=== PATIENT | male | born 2000 | race Caucasian/White ===

== ENCOUNTER 2023-07-10 08:20 | Emergency (ER) | payer BC, SELFPAY ==
[2023-07-10 08:31] VITALS: BP 138/78; PULSE 79; RESP 18; TEMP 36.2; O2SAT 99; BMI 24.4
--- NOTE | 2023-07-10 08:41 | CRLHL7_ITS ---
For Patients: As a result of the Cures Act, medical imaging exams and procedure reports are released immediately into your electronic medical record. You may view this report before your referring provider. If you have questions, please contact your health care provider. Indication: Crush injury 3rd digit right finger. Technique: Right 3rd finger 3 views. Comparison: None. Findings: Bones: Alignment is normal. No fractures or bone lesions. Joint spaces: Unremarkable. Soft tissues: Irregularity over the right 3rd finger nailbed. No imbedded foreign body. Impression: : Right 3rd finger nailbed irregularity. No fracture or foreign body. Dictated by Cece Malhotra MD @ 07/10/2023 9:16:52 AM (Electronically Signed)
--- NOTE | 2023-07-10 08:43 | ED_ITS ---
HPI - General Adult General Chief complaint: Extremity Pain/Injury, Upper Stated complaint: bleeding under fingernail Time Seen by Provider: 07/10/23 08:23 History of Present Illness HPI narrative: The patient is a 22-year-old male slammed his long finger nail in a door last night. Has some blood under the nail. He studied the Internet and thought this should get checked. He has otherwise been healthy. He reports he is up-to-date on tetanus. No other health problem. He has a college student. From the [facility]. Related Data Previous Rx's Medication Instructions Recorded cephalexin 500 mg capsule 500 mg PO QID #20 caps 07/10/23 Allergies Allergy/AdvReac Type Severity Reaction Status Date / Time No Known Drug Allergies Allergy Verified 07/10/23 08:33 Review of Systems Narrative: Negative for infections or other finger injuries in the past. PFSH [facility] Social History Smoking Status: Never smoker Do you use any of these nicotine containing products: None Exam Narrative: Exam Narrative: Objective: Vital signs unremarkable Long finger of the right hand shows a subungual hematoma about residential up the nail from proximal to distal. No marked redness. Range of motion appears normal. Minimal soft tissue swelling of the distal phalanx Const: Vital Signs, click to edit/add: Vital Signs - 24 hr 07/10/23 08:31 Temperature 97.2 F L Pulse Rate [Right Pulse Oximeter] 79 Respiratory Rate 18 Blood Pressure [Ri ght Upper Arm] 138/78 Pulse Oximetry 99 Oxygen Delivery Me thod Room Air Course Vital Signs Vital signs: Initial Vital Signs Temperature 97.2 F L 07/10/23 08:31 Temperature Source Temporal Artery Scan 07/10/23 08:31 Pulse Rate 79 07/10/23 08:31 Respiratory Rate 18 07/10/23 08:31 Blood Pressure 138/78 07/10/23 08:31 Blood Pressure Mean 98 07/10/23 08:31 Blood Pressure Position Sitting 07/10/23 08:31 Pulse Oximetry 99 07/10/23 08:31 Oxygen Delivery Method Room Air 07/10/23 08:31 Vital Signs Temperature 97.2 F L 07/10/23 08:31 Pulse Rate 79 07/10/23 08:31 Respiratory Rate 18 07/10/23 08:31 Blood Pressure 138/78 07/10/23 08:31 Pulse Oximetry 99 07/10/23 08:31 Oxygen Delivery Method Room Air 07/10/23 08:31 Temperature 97.2 F L 07/10/23 08:31 Pulse Rate 79 07/10/23 08:31 Respiratory Rate 18 07/10/23 08:31 Blood Pressure 138/78 07/10/23 08:31 Pulse Oximetry 99 07/10/23 08:31 Oxygen Delivery Method Room Air 07/10/23 08:31 Medical Decision Making MDM Narrative Medical decision making narrative: 22-year-old male signed his finger in a door. Will get an x-ray. Because of the subdural hematoma a procedure was performed a Betadine swab was used to clean the nail and hot tip cautery is used to open the nail bed good expression of blood was noted. X-ray of the finger appears negative. Patient will cover the wound and soak it starting tonight couple times a day in soapy water. Will put him on Keflex 500 q.i.d. x5 days because of the injury. Return if problems or concerns. Discharge Plan Discharge Clinical Impression: Contusion of finger, Subungual hematoma Patient Disposition: Home, Self-Care Condition: Improved Additional Instructions: Keep covered for 4-6 hours, then may start soaking the finger and cover with a bandage as needed. Keflex 500 q.i.d. x5 days. Watch for redness or infection. Return if problems or concerns. Activity Level: Light activity Discharge Diet: Regular Prescriptions: New cephalexin 500 mg capsule 500 mg PO QID Qty: 20 0RF Stand Alone Forms: [facility] Info Instructions
== END 2023-07-10 09:18 | disposition home or self-care (01) ==
LOC: ED 09:00
PROVIDERS: Emergency Provider Family Medicine
DX: S60.131A Contusion of right middle finger with damage to nail, initial encounter (principal); W23.0XXA Caught, crushed, jammed, or pinched between moving objects, initial encounter
CPT/HCPCS: 73140; 99283; 99284

== ENCOUNTER 2023-12-23 21:16 | Emergency (ER) | payer OTHER, SELFPAY ==
[2023-12-23 21:43] VITALS: BP 145/79; PULSE 85; RESP 16; TEMP 36.7; O2SAT 99; BMI 23.1
--- NOTE | 2023-12-23 22:49 | ED_ITS ---
HPI - General Adult General Time Seen by Provider: 22:49 Date Seen: 12/23/23 Chief complaint: Ear/Nose/Throat Problem Stated complaint: Ear infection/Fever Time Seen by Provider: 12/23/23 22:49 Source: patient and RN notes reviewed Mode of arrival: ambulatory Limitations: no limitations History of Present Illness HPI narrative: Yoni is a very pleasant 23-year-old [employer] student previously healthy who comes to the emergency room with complaints of right ear pain that started this afternoon. Patient notes the onset of a viral type illness on December 19 with associated fevers, cough and congestion. He has been able to eat and drink. He has not noticed any drainage from his ear. He has not had chest pain or difficulty breathing. Yoni did take a COVID test at home and it was negative. Related Data Allergies Allergy/AdvReac Type Severity Reaction Status Date / Time No Known Drug Allergies Allergy Verified 07/10/23 08:33 Review of Systems Status of ROS: Reports: 6 or more systems reviewed and unremarkable except as noted in History and below Const: Reports: fever, chills and fatigue ENMT: Reports: nasal congestion; Denies: neck pain Cardio: Denies: chest pain or shortness of breath with exertion Resp: Reports: cough; Denies: shortness of breath GI: Denies: nausea or vomiting Musculo: Denies: neck pain Endo: Reports: fatigue PFSH PFSH Social History Smoking Status: Never smoker Do you use any of these nicotine containing products: None Non-prescribed substance use: denies use Exam Narrative: Exam Narrative: Trials is alert and oriented. No acute distress. Eyes are clear. Right TM is partially obscured by cerumen but there does appear to be erythema and bulging in the posterior aspect of the TM. No pain with external manipulation of the ear. No obvious drainage noted. Left TM within normal limits. Nose is clear. Oral cavity with moist mucous membranes. Slight erythema in the posterior oropharynx no cobblestoning. No trismus. Heart with a regular rate and rhythm and lungs are clear to auscultation. Moving all extremities. Const: Vital Signs, click to edit/add: Vital Signs - 24 hr 12/23/23 21:43 Temperature 98.1 F Pulse Rate [Pulse Oximeter] 85 Respiratory Rate 16 Blood Pressure [Ri ght Upper Arm] 145/79 H Pulse Oximetry 99 Oxygen Delivery Me thod Room Air Documenting provider has reviewed patient's vital signs: yes Course Vital Signs Vital signs: Initial Vital Signs Temperature 98.1 F 12/23/23 21:43 Temperature Source Temporal Artery Scan 12/23/23 21:43 Pulse Rate 85 12/23/23 21:43 Respiratory Rate 16 12/23/23 21:43 Blood Pressure 145/79 H 12/23/23 21:43 Blood Pressure Mean 101 12/23/23 21:43 Blood Pressure Position Sitting 12/23/23 21:43 Pulse Oximetry 99 12/23/23 21:43 Oxygen Delivery Method Room Air 12/23/23 21:43 Vital Signs Temperature 98.1 F 12/23/23 21:43 Pulse Rate 85 12/23/23 21:43 Respiratory Rate 16 12/23/23 21:43 Blood Pressure 145/79 H 12/23/23 21:43 Pulse Oximetry 99 12/23/23 21:43 Oxygen Delivery Method Room Air 12/23/23 21:43 Temperature 98.1 F 12/23/23 21:43 Pulse Rate 85 12/23/23 21:43 Respiratory Rate 16 12/23/23 21:43 Blood Pressure 145/79 H 12/23/23 21:43 Pulse Oximetry 99 12/23/23 21:43 Oxygen Delivery Method Room Air 12/23/23 21:43 Medical Decision Making MDM Narrative Medical decision making narrative: 1. Right otitis media-patient will be treated with amoxicillin 500 mg t.i.d. x 7 days. I do not consider this is severe infection and therefore will not issue 10 days per up-to-date. Suggest ibuprofen and Tylenol as needed for discomfort. 2. URI-Given duration of symptoms patient is out of the window for treatment with Paxlovid or Tamiflu but I do feel it would be valuable for patient to know if he does have 1 of those illnesses in their force will swab him. He does not have to wait for those results. We will call him if 1 of them is positive. 3. Disposition-home at this time. Return as needed for worsening symptoms especially for drainage from ear and as needed. Lab Data Lab results reviewed: Yes I reviewed the patient's lab results Labs: Lab Results 12/23/23 Range/Units 23:13 SARS-CoV-2 (PCR) Negative SARS-CoV-2 (Negative) Influenza Type A (PCR) Negative PCR FLU A (Negative) Influenza Type B (PCR) Negative PCR FLU B (Negative) RSV (PCR) Negative PCR RSV (Negative) Discharge Plan Discharge Clinical Impression: Otitis media Qualifiers: Otitis media type: unspecified Chronicity: acute Qualified Code(s): H66.90 - Otitis media, unspecified, unspecified ear Patient Disposition: Home, Self-Care Condition: Unchanged Additional Instructions: Start amoxicillin tonight. I did put this through our [employer] machine. Ibuprofen or Tylenol as needed for discomfort. Return as needed for worsening symptoms and as needed. Follow Up/Referrals: Provider,Not a Local [Primary Care Provider] - Stand Alone Forms: [employer] Info Instructions
[2023-12-24 00:21] LABS: PCR FLU A Negative PCR FLU A (Negative); PCR FLU B Negative PCR FLU B (Negative); PCR RSV Negative PCR RSV (Negative); SARS PCR* Negative SARS-CoV-2 (Negative)
== END 2023-12-23 23:23 | disposition home or self-care (01) ==
LOC: ED 23:20
PROVIDERS: Emergency Provider Family Medicine
DX: H66.91 Otitis media, unspecified, right ear (principal)
CPT/HCPCS: 87631; 99283